=== PATIENT | male | born 1970 | race Caucasian/White ===

== ENCOUNTER 2025-04-16 07:43 | Day surgery (SDC) | payer MEDICAID ==
[2025-04-16] MEDS: Lactated Ringers 1,000 ML IV SCH (07:57)
[2025-04-16] MEDS ORDERED: Midazolam 1 MG/ML 2 ML SDV ONE (08:10)
[2025-04-16] MEDS ORDERED: fentaNYL 50 MCG/ML SDV ONE (08:10)
[2025-04-16] MEDS ORDERED: Propofol 200 MG/20 ML SDV ONE ×2 (08:10→09:03)
== END 2025-04-16 10:14 | disposition home or self-care (01) ==
LOC: JP.SDS 07:43
PROVIDERS: ATTEND Surgery
DX: Z12.11 Encounter for screening for malignant neoplasm of colon (principal)
CPT/HCPCS: 00812; G0121; J2250; J2704; J3010; J7120